=== PATIENT | female | born 2000 | race Caucasian/White ===

== ENCOUNTER 2020-05-25 17:45 | Emergency (ER) | payer OTHER, BC ==
[2020-05-25] MEDS ORDERED: DIPHTH,PERTUSS(ACELL),TET 0.5 ML DISP.SYRIN IM ONE (17:55)
--- NOTE | 2020-05-25 17:56 | PDOC ---
Rapid Medical Evaluation Chief Complaint: Injury Time Seen by Provider: 05/25/20 17:53 Medical Evaluation: 05/25/20 17:53 Ot is a 19 y/o F presenting to the ED with a small puncture wound to her forehead. 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 Unsure of last tetanus Exam: subcentimeter lac to the L forehead Orders: boostrix Pt to proceed to the ER for further evaluation Discharge Disposition - Diagnosis Head injury Qualifiers: Encounter type: initial encounter Qualified Code(s): S09.90XA - Unspecified injury of head, initial encounter - Referrals - Patient Instructions - Post Discharge Activity
[2020-05-25 17:57] VITALS: BP 128/87; PULSE 94; TEMP 97.8; BMI 31.1
--- NOTE | 2020-05-25 18:41 | PDOC ---
History of Present Illness - General Chief Complaint: Injury Stated Complaint: INJURY Time Seen by Provider: 05/25/20 17:53 History Source: Patient Exam Limitations: No Limitations - History of Present Illness Initial Comments: 05/25/20 18:37 Patient is a 19-year-old female with no past medical history presents to the ED with an abrasion to her left forehead that she sustained while at work. 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 She denies any LOC or visual changes. She immediately cleaned the wound with rubbing alcohol. She denies any numbness or tingling. She is unsure when her last tetanus booster was. Past History - Medical History Allergies/Adverse Reactions: Allergies Allergy/AdvReac Type Severity Reaction Status Date / Time acetaminophen [From Tylenol] Allergy Severe Verified 05/25/20 18:05 ibuprofen Allergy Severe Verified 05/25/20 18:05 shellfish derived Allergy Severe Verified 05/25/20 18:05 Home Medications: Ambulatory Orders NK [No Known Home Medication] 05/25/20 - Psycho-Social/Smoking History Smoking History: Never smoked Information on smoking cessation initiated: No - Substance Abuse Hx (Audit-C & DAST Scrn) How often the patient has a drink containing alcohol: Never Score: In Men: 4 or > Positive; In Women: 3 or > Positive: 0 Screen Result (Pos requires Nsg. Audit-10AR): Negative In the last yr the pt used illegal drug/Rx for NonMed reason: No Score: Yes response is considered Positive: 0 Screen Result (Positive result requires Nsg. DAST-10): Negative Review of Systems - Review of Systems Comments:: 05/25/20 18:38 - Review of Systems Able to Perform ROS?: Yes Constitutional: No: Fever, Chills, Loss of Appetite, Night Sweats, Weakness HEENTM: No: Eye Pain, Vision changes, Ear Pain, Throat Pain, Throat Swelling, Mouth Pain, Difficulty Swallowing Respiratory: No: Cough, Shortness of Breath, Wheezing, Sputum Production Cardiac (ROS): No: Chest Pain, Chest Tightness, Palpitations, Irregular Heart Beat, Edema ABD/GI: No: Nausea, Vomiting, Abdominal Pain, Diarrhea : No Dysuria, No Hematuria, No Frequency, No Urgency Musculoskeletal: No: Muscle Pain, Back Pain, Joint Pain, Muscle Weakness, Neck Pain Integumentary: No: Lesions, Rash; positive: Abrasion to the left forehead Neurological: No: Headache, Numbness, Tingling, Weakness, Speech Difficulties *Physical Exam - Vital Signs Last Vital Signs Temp Pulse Resp BP Pulse Ox 97.8 F 94 H 16 128/87 96 05/25/20 17:52 05/25/20 17:52 05/25/20 17:52 05/25/20 17:52 05/25/20 17:52 - Physical Exam 05/25/20 18:38 - Physical Exam General Appearance: Nourished, Appropriately Dressed, No Distress HEENT: EOMI, Normal Voice, Hearing Grossly Normal Neck: Supple, No Lymphadenopathy (R), No Lymphadenopathy (L), No Rigidity, No Decreased range of motion Respiratory/Chest: Lungs Clear, Normal Breath Sounds. No Respiratory Distress, No Accessory Muscle Use Cardiovascular: Regular Rhythm, Regular Rate, S1, S2 Musculoskeletal: Normal Inspection. No Decreased Range of Motion Extremity: Normal Capillary Refill, Normal Inspection Integumentary: Normal Color, Dry. No Rash; 2 mm abrasion to the left forehead without active bleeding. No sign of infection. No drainage. Neurologic: rod cup filler II-XII NML intact, Fully Oriented, Alert, Normal Mood/Affect, Normal Response ED Treatment Course - Medications Given in the ED: ED Medications Discontinued Medications Generic Name Dose Route Start Last Admin Trade Name Freq PRN Reason Stop Dose Admin Diphtheria/Tetanus/Acell Pertussis 0.5 ml 05/25/20 17:55 05/25/20 18:30 Boostrix - IM 05/25/20 17:56 0.5 ml .ONCE ONE Administration Medical Decision Making - Medical Decision Making 05/25/20 18:39 Assessment: Patient is a 19-year-old female with an abrasion to the left forehead that she sustained while at work after hitting a metal bar. Plan: -Boostrix given -Wound cleaned and sterile bandage applied -Patient given wound care instructions and is advised to follow-up with employee health within the next 24 to 48 hours. Discharge - Discharge Information Problems reviewed: Yes Clinical Impression/Diagnosis: Head injury Qualifiers: Encounter type: initial encounter Qualified Code(s): S09.90XA - Unspecified injury of head, initial encounter Forehead abrasion Qualifiers: Encounter type: initial encounter Qualified Code(s): S00.81XA - Abrasion of other part of head, initial encounter Condition: Stable Disposition: HOME - Follow up/Referral - Patient Discharge Instructions Patient Printed Discharge Instructions: DI for Abrasion Additional Instructions: Keep the wound clean and dry. Wash the wound once daily with warm water and soap. Be sure to follow-up with employee health within 1 to 2 days for repeat evaluation. - Post Discharge Activity
== END 2020-05-25 19:03 | disposition home or self-care (01) ==
LOC: JERFT 17:45
PROC: 3E0234Z Introduction of Serum, Toxoid and Vaccine into Muscle, Percutaneous Approach (ICD-10-PCS; principal; 2020-05-25)
DX: S09.90XA Unspecified injury of head, initial encounter (principal); S00.81XA Abrasion of other part of head, initial encounter
CPT/HCPCS: 90715; 99283-25

== ENCOUNTER 2021-02-09 15:47 | Emergency (ER) | payer BC | END 2021-02-09 16:00 | disposition home or self-care (01) | LOC: JVIRT 15:47 | DX: Z20.822 Contact with and (suspected) exposure to COVID-19 (principal) | CPT/HCPCS: C9803; G2251-GT; Q3014-GT; U0003; U0005 ==

== ENCOUNTER 2024-01-12 12:27 | Emergency (ER) | payer BC ==
[2024-01-12] MEDS ORDERED: ONDANSETRON 4 MG/2 ML VIAL ONE (12:41)
[2024-01-12 13:18] VITALS: RESP 20; BMI 34.7
[2024-01-12] MEDS: SODIUM CHLORIDE 1,000 ML IV STA (13:18)
[2024-01-12] MEDS: ONDANSETRON 4 MG/2 ML VIAL IVPB ONE (13:19)
[2024-01-12 13:30] LABS: HEMATOCRIT 44.7 % (32.4-45.2); HEMOGLOBIN 14.6 G/dL (10.7-15.3); MCH 28.5 pg (25.7-33.7); MCHC 32.7 g/dl (32.0-36.0); MEAN CELL VOLUME 87.4 fl (80-96); MEAN PLT VOLUME 8.8 fl (7.5-11.1); PLATELET COUNT 190.5 10^3/uL (134-434); RBC 5.12 10^6/uL (3.60-5.2); RDW 13.8 % (11.6-15.6); WHITE BLOOD COUNT 9.8 10^3/uL (4.0-10.8)
[2024-01-12 13:40] LABS: ALBUMIN 4.5 g/dl (3.4-5.0); BILIRUBIN,TOTAL 1.1 mg/dl (0.2-1); CALCIUM 9.1 mg/dl (8.5-10.1); CREATININE 0.6 mg/dl (0.6-1.3); POTASSIUM 3.8 mmol/L (3.5-5.1); TOT PROT 6.7 g/dl (6.4-8.2)
[2024-01-12 13:44] LABS: PLATELET ESTIMATE ADEQUATE
[2024-01-12 14:47] LABS: HCG,QUALITATIVE URINE Negative
[2024-01-12 15:26] VITALS: BP 126/85; PULSE 109; TEMP 99.9
== END 2024-01-12 15:26 | disposition home or self-care (01) ==
LOC: FER 12:27
PROC: 3E030GC Introduction of Other Therapeutic Substance into Peripheral Vein, Open Approach (ICD-10-PCS; principal; 2024-01-12)
PROC: 3E0337Z Introduction of Electrolytic and Water Balance Substance into Peripheral Vein, Percutaneous Approach (ICD-10-PCS; 2024-01-12)
DX: R10.9 Unspecified abdominal pain (principal); R11.2 Nausea with vomiting, unspecified; R51.9 Headache, unspecified; M79.10 Myalgia, unspecified site; R19.7 Diarrhea, unspecified; R50.9 Fever, unspecified; A08.4 Viral intestinal infection, unspecified; Z20.822 Contact with and (suspected) exposure to COVID-19
CPT/HCPCS: 0241U-QW; 36415; 80053; 81003; 84703; 85027; 99284-25